=== PATIENT | male | born 1955 | race Hispanic/Latino ===

== ENCOUNTER → 2018-09-30 | Outpatient (CLI) | payer MEDICAID | LOC: C.PAT 09:18 | DX: R97.20 Elevated prostate specific antigen [PSA] (principal) ==

== ENCOUNTER 2018-10-06 08:29 | Day surgery (SDC) | payer MEDICAID ==
[2018-09-30 09:35] VITALS: BMI 21.1
[2018-10-06] MEDS ORDERED: Gentamicin 80 mg in 0.9% NS 160 MG/200 ML BAG IVPB ONE (09:56)
[2018-10-06] MEDS ORDERED: cefTRIAXone 1 gm 1 GM/100 ML BAG IVPB ONE (09:56)
[2018-10-06] MEDS ORDERED: Lidocaine 2% Jelly (Uro-Jet) ONE (09:57)
[2018-10-06] MEDS ORDERED: Propofol 10 mg/ml Inj (20 ML) ONE ×2 (10:01→10:52)
[2018-10-06] MEDS ORDERED: Midazolam 2 MG/2 ML VIAL ONE (10:01)
[2018-10-06 11:51] VITALS: O2SAT 100
[2018-10-06 12:27] VITALS: BP 96/55; PULSE 54; RESP 18; TEMP 98
--- NOTE | 2018-10-06 13:15 | OP ---
PROCEDURE DATE: 10/06/2018 PREOPERATIVE DIAGNOSIS: Elevated prostate-specific antigen 5.7. POSTOPERATIVE DIAGNOSIS: Elevated prostate-specific antigen 5.7. PROCEDURE: TRUS and prostate biopsy, limited. SURGEON: Layton Patton MD The patient was met in the holding area. Again, I reminded him that in the event he has heavy bleeding, fever or chills postop or difficulty voiding, he is to call me immediately and/or go to the emergency room. DESCRIPTION OF PROCEDURE: The patient brought to the cystoscopy room, placed under sedation in lithotomy position, prepped and draped in usual fashion. Rocephin 1 g and gentamicin 160 mg were given intravenously for prophylaxis. The rectum was now cleansed with Betadine. We inserted the B and K transducer into the rectum and we were able to image the prostate transversely. It was clear that it was very enlarged. No localizing lesions were noted. However, in an attempt to get good sagittal views, we could not get adequate imaging to delineate the margins of the prostate sagittaly and I could not proceed with ultrasound-guided biopsies. We were able to call the [employer] rep, [place], and using face-time showed him some of the images. He made a few suggestions as to various settings on the unit and these failed to improve the sagittal image in anyway, shape or form. We then decided to do the biopsies using manual control. The transducer was removed and then using the biopsy instrument in a plastic sheath, we attempted some biopsies from the right and left lobe. However, many of the passes did not yield adequate tissue and I felt that at this point, I was unable to get enough tissue to satisfy myself and I did not want to injure the prostate not necessarily. Therefore, I terminated the procedure at this point. Using manual compression with my gloves finger, I maintained pressure against the prostatic fossa for about 6 minutes and then at that point, there was no bleeding noted. The patient was brought to the recovery room. Layton Patton MD
== END 2018-10-06 14:56 | disposition home or self-care (01) ==
LOC: C.SDS 08:29
PROVIDERS: ATTEND Urology
DX: N40.0 Benign prostatic hyperplasia without lower urinary tract symptoms (principal); R97.20 Elevated prostate specific antigen [PSA]
CPT/HCPCS: 55700; 88305; 88342; J0696; J1580